=== PATIENT | male | born 1980 | race Caucasian/White ===

== ENCOUNTER 2024-05-06 05:37 | Emergency (ER) | payer SELFPAY ==
[2024-05-06] MEDS: Ketorolac 30 MG/ML SDV IM ONE (05:49)
[2024-05-06] MEDS: Orphenadrine 60 MG/2 ML Inj IM ONE (05:50)
== END 2024-05-06 05:56 | disposition home or self-care (01) ==
LOC: MW.ED 05:37
DX: M54.50 Low back pain, unspecified (principal); G89.29 Other chronic pain; Z75.8 Other problems related to medical facilities and other health care
CPT/HCPCS: 96372; 99283; J1885; J2360